=== PATIENT | male | born 1990 | race Caucasian/White ===

== ENCOUNTER 2020-08-17 05:32 | Inpatient (IN) ==
[2020-08-17] MEDS ORDERED: *HR* LORazepam 2 MG/ML VIAL IM ONE (06:41)
[2020-08-17 06:44] LABS: Bilirubin,Urine Negative (Negative); Blood,Urine Negative (Negative); Clarity,Urine Clear (Clear); Color,Urine Yellow (Yellow); Glucose,Urine (UA) Normal (Normal); Hyaline Casts,Urine Few per lpf (None Seen); Ketones,Urine Trace mg/dL (Negative); Leukocyte Esterase,Urine Negative (Negative); Mucus,Urine Many per lpf (None-Few); Nitrite,Urine Negative (Negative); Protein,Urine 70 mg/dL (Neg-Trace); Specific Gravity,Urine > 1.030 (1.010-1.025); Sperm,Urine Present (None Seen)
[2020-08-17 07:02] LABS: Basophils # 0.1 K/mcL (0.0-0.2); Basophils % 0.7 %; Eosinophils # 0.1 K/mcL (0.0-0.6); Eosinophils % 0.8 %; Hematocrit 43.2 % (37.5-50.1); Hemoglobin 14.9 g/dL (12.9-16.9); Immature Granulocytes % 0.3 % (0-4); Lymphocytes # 1.6 K/mcL (0.6-4.6); Lymphocytes % 18.2 %; Mean Corpuscular HGB Conc 34.5 g/dL (31.6-35.5); Mean Corpuscular Hemoglobin 29.4 pg (28.0-33.3); Mean Corpuscular Volume 85.2 fL (83.0-100.0); Mean Platelet Volume 9.7 fL (9.4-12.4); Monocytes # 0.4 K/mcL (0.0-1.3); Monocytes % 4.8 %; Neutrophils # 6.5 K/mcL (1.6-8.9); Platelet Count 291 K/mcL (140-400); Red Blood Count 5.07 M/mcL (4.19-5.50); Red Cell Distribution Width 12.2 % (11.5-14.5); Segmented Neutrophils % 75.2 %; White Blood Count 8.7 K/mcL (4.3-11.1)
[2020-08-17 07:21] LABS: Acetaminophen < 10 mcg/mL (10-20); BUN/Creatinine Ratio 12 (6-26); Blood Urea Nitrogen 11 mg/dL (6-20); Calcium 9.4 mg/dL (8.6-10.3); Carbon Dioxide 27 mEq/L (23-29); Chloride 100 mEq/L (98-107); Ethanol < 10 mg/dL (Less than 10); Glucose 99 mg/dL (70-105); Osmolality,Calculated 281 (280-300); Potassium 2.9 mEq/L (3.5-5.1); Salicylate < 2.5 mg/dL (15.0-30.0); Sodium 136 mEq/L (136-145); eGFR For African Americans > 60 (> 60); eGFR For Non-African Americans > 60 (> 60)
[2020-08-17 07:33] LABS: Amphetamine Screen,Urine Positive ng/mL (Cutoff=1000); Barbiturate Screen,Urine Negative ng/mL (Cutoff=200)
[2020-08-17 07:35] LABS: Benzodiazepines Screen,Urine Negative ng/mL (Cutoff=300); Cannabinoid Screen,Urine Positive ng/mL (Cutoff = 50); Cocaine Screen,Urine Negative ng/mL (Cutoff= 300); Opiate Screen,Urine Negative ng/mL (Cutoff=300); Phencyclidine Screen,Urine Negative ng/mL (Cutoff=25)
[2020-08-17] MEDS ORDERED: traZODone 50 MG TABLET PO PRN (13:01)
[2020-08-17] MEDS ORDERED: haloperidoL 5 MG TABLET PO PRN (13:01)
[2020-08-17] MEDS ORDERED: Haloperidol Lactate 5 MG/ML VIAL IM PRN (13:01)
[2020-08-17] MEDS ORDERED: *HR* LORazepam 2 MG/ML VIAL IM PRN (13:01)
[2020-08-17] MEDS ORDERED: Ibuprofen 400 MG TABLET PO PRN (13:01)
[2020-08-17] MEDS ORDERED: *HR* LORazepam 1 MG TABLET PO PRN (13:01)
[2020-08-17] MEDS ORDERED: MOM Conc 10 ML UD.LIQ PO PRN (13:01)
[2020-08-18] MEDS ORDERED: Nicotine 14 MG PATCH.TD24 TD SCH (09:00)
[2020-08-18 11:45] LABS: BUN/Creatinine Ratio 10 (6-26); Blood Urea Nitrogen 9 mg/dL (6-20); Calcium 8.7 mg/dL (8.6-10.3); Carbon Dioxide 30 mEq/L (23-29); Chloride 104 mEq/L (98-107); Glucose 84 mg/dL (70-105); Osmolality,Calculated 286 (280-300); Potassium 4.1 mEq/L (3.5-5.1); Sodium 139 mEq/L (136-145); eGFR For African Americans > 60 (> 60); eGFR For Non-African Americans > 60 (> 60)
[2020-08-18] MEDS: Nicotine 2 MG GUM BC PRN (20:45)
[2020-08-18] MEDS: hydrOXYzine pamoate 25 MG CAPSULE PO PRN (20:45)
[2020-08-18] MEDS: QUEtiapine Fumarate 100 MG TABLET PO SCH (20:45)
[2020-08-19] MEDS: Nicotine 2 MG GUM BC PRN ×2 (08:51→19:53)
[2020-08-19] MEDS ORDERED: cloNIDine HCL 0.1 MG TABLET PO PRN (11:32)
[2020-08-19] MEDS ORDERED: Baclofen 10 MG TABLET PO PRN (14:31)
[2020-08-19] MEDS: hydrOXYzine pamoate 25 MG CAPSULE PO PRN (20:32)
[2020-08-19] MEDS: QUEtiapine Fumarate 100 MG TABLET PO SCH (20:32)
[2020-08-20 10:28] VITALS: BP 129/87
== END 2020-08-20 10:35 | disposition home or self-care (01) | DRG 885 ==
LOC: EMEROOARM 05:32 → INTOOBSV 12:49 → 1ANU 12:49
PROVIDERS: ADMIT Psychiatry & Neurology Forensic Psychiatry; ATTEND Psychiatry & Neurology Forensic Psychiatry